=== PATIENT | female | born 1975 | race Hispanic/Latino ===

== ENCOUNTER 2016-11-13 14:24 | Emergency (ER) | payer BC | END 2016-11-13 16:53 | disposition home or self-care (01) | LOC: ERS 14:24 | DX: J06.9 Acute upper respiratory infection, unspecified (principal) | CPT/HCPCS: 99283 ==

== ENCOUNTER 2017-04-03 07:59 | Emergency (ER) | payer BC ==
--- NOTE | 2017-04-03 08:55 | RAD ---
PA AND LATERAL CHEST: History: Cough. FINDINGS: Comparison is made with exam of 02-08-12. The heart size is normal. The lungs are expanded without focal areas of consolidation, pneumothorax, or pleural effusions. Mild degenerative changes in the spine. IMPRESSION: No radiographic evidence of acute cardiopulmonary process. POS: OFF
== END 2017-04-03 09:02 | disposition home or self-care (01) ==
LOC: ERS 07:59
DX: B34.9 Viral infection, unspecified (principal)
CPT/HCPCS: 71046; 87804; 94640; J7620

== ENCOUNTER 2017-07-27 15:48 | Outpatient (CLI) | payer BC | END 2017-07-27 15:49 | disposition home or self-care (01) | LOC: BICMAMMO 15:48 | PROVIDERS: ATTEND Orthopaedic Surgery Sports Medicine | DX: Z12.31 Encounter for screening mammogram for malignant neoplasm of breast (principal) | CPT/HCPCS: 77063; 77067 ==

== ENCOUNTER 2017-10-22 10:40 | Outpatient (CLI) | payer BC | END 2017-10-22 10:41 | disposition home or self-care (01) | LOC: BICRAD 10:40 | PROVIDERS: ATTEND Internal Medicine | DX: J34.2 Deviated nasal septum (principal) | CPT/HCPCS: 70220 ==

== ENCOUNTER 2018-06-17 10:56 | Emergency (ER) | payer BC | END 2018-06-17 13:42 | disposition home or self-care (01) | LOC: ERS 10:56 | DX: M65.4 Radial styloid tenosynovitis [de Quervain] (principal) | CPT/HCPCS: 99283 ==

== ENCOUNTER 2018-11-01 15:02 | Outpatient (CLI) | payer BC ==
--- NOTE | 2018-11-01 15:21 | MMO ---
Bilateral MAMMO Bilat Screen [facility]. CLINICAL HISTORY: Patient is 43 years old and is seen for screening. The patient has no family history of breast cancer. The patient has no personal history of cancer. VIEWS: The views performed were: bilateral craniocaudal with tomosynthesis and bilateral mediolateral oblique with tomosynthesis. FILMS COMPARED: The present examination has been compared to prior imaging studies performed at [facility] on 07/08/2012, 03/30/2015, 05/19/2016 and 07/27/2017. This study has been interpreted with the assistance of computer-aided detection. MAMMOGRAM FINDINGS: The breasts are heterogeneously dense, which could obscure a lesion on mammography. There are no suspicious masses, suspicious calcifications, or new areas of architectural distortion. IMPRESSION: THERE IS NO MAMMOGRAPHIC EVIDENCE OF MALIGNANCY. A ROUTINE FOLLOW-UP MAMMOGRAM IN 1 YEAR IS RECOMMENDED. THE RESULTS OF THIS EXAM WERE SENT TO THE PATIENT. ACR BI-RADS Category 1 - Negative MAMMOGRAPHY NOTE: 1. A negative mammogram report should not delay a biopsy if a dominant of clinically suspicious mass is present. 2. Approximately 10% to 15% of breast cancers are not detected by mammography. 3. Adenosis and dense breasts may obscure an underlying neoplasm. Reported by: DEMI GUERRERO MD Electonically Signed: [id number]
== END 2018-11-01 15:03 | disposition home or self-care (01) ==
LOC: BICMAMMO 15:02
PROVIDERS: ATTEND Family Medicine
DX: Z12.31 Encounter for screening mammogram for malignant neoplasm of breast (principal)
CPT/HCPCS: 77063; 77067

== ENCOUNTER 2018-11-29 11:24 | Emergency (ER) | payer BC ==
[2018-11-29] MEDS ORDERED: Acetaminophen 500 MG TAB ONE (13:01)
[2018-11-29 13:13] LABS: #Basophils 0.1 thou/uL (0.0-0.2); #Eosinphils 0.2 thou/uL (0.0-0.7); #Lymphocytes 1.9 thou/uL (1.20-3.40); #Monocytes 0.9 thou/uL (0.11-0.59); #Neutrophils 5.2 thou/uL (1.40-6.50); %Basophils 0.8 % (0.0-1.0); %Eosinophils 2.2 % (0.0-10.0); %Lymphocytes 23.2 % (21.0-51.0); %Monocytes 10.4 % (0.0-10.0); %Neutrophils 63.5 % (42.0-75.0); Mean Corpuscular HGB CONC 34.5 g/dL (32.0-36.0); Mean Corpuscular Hemoglobin 32.5 pg (27.0-31.0); Mean Platelet Volume 6.8 fL (7.4-10.4); Platelet Count 265 thou/uL (130-400); RBC Distribution Width 11.9 % (11.5-14.5); Red Blood Cell (RBC) Count 4.61 mill/uL (4.20-5.40); White Blood Cell (WBC) Count 8.2 thou/uL (4.8-10.8)
--- NOTE | 2018-11-29 13:31 | RAD ---
2 VIEW CHEST: Date: 11/29/18 COMPARISON: 04/03/17. INDICATION: Chest pain. FINDINGS: Lungs are clear. No effusion or pneumothorax. Cardiac silhouette accentuated by portable technique. IMPRESSION: No focal consolidation. POS: C
[2018-11-29 13:35] LABS: ALT (SGPT) 19 U/L (8-55); AST (SGOT) 19 U/L (5-34); Albumin 3.9 g/dL (3.5-5.0); Alkaline Phosphatase 66 U/L (40-110); Anion Gap 13 mmol/L (10-20); BUN (Urea Nitrogen) 12 mg/dL (7.0-18.7); Bilirubin, Total 0.3 mg/dL (0.2-1.2); Calc. Creatinine Clearance 0 mL/min (70-130); Calcium 8.9 mg/dL (7.8-10.44); Carbon Dioxide 21 mmol/L (22-29); Chloride 107 mmol/L (98-107); Estimated GFR-MDRD 81; Globulin 3.1 g/dL (2.4-3.5); Glucose 93 mg/dL (70-105); Sodium 137 mmol/L (136-145)
[2018-11-29 13:37] LABS: BHCG - Serum Negative (NEGATIVE); Pregs Control Background? CLEAR/WHITE (CLR/WHITE); Pregs Control Bar Appear? YES (CONTROL BAR)
[2018-11-29 13:38] LABS: Bilirubin Negative (Negative); Blood, Urine Negative (Negative); Clarity Clear (Clear); Glucose, Urine (Dipstick) Normal (Negative); Leukocyte 500 Leu/uL (Negative); Nitrite Negative (Negative); Protein, Urine (Dipstick) Negative (Neg-Trace); Urobilinogen Normal mg/dL (Less than 2)
[2018-11-29 13:45] LABS: Bacteria/HPF 1+ HPF (None Seen)
== END 2018-11-29 14:50 | disposition home or self-care (01) ==
LOC: ERS 11:24
DX: N39.0 Urinary tract infection, site not specified (principal); M54.6 Pain in thoracic spine
CPT/HCPCS: 36415; 71046; 80053; 81003; 81015; 84484; 84703; 85025; 93005

== ENCOUNTER 2020-07-23 15:44 | Outpatient (CLI) | payer BC, OTHER | END 2020-07-23 15:45 | disposition home or self-care (01) | LOC: BICRAD 15:44 | PROVIDERS: ATTEND Family Medicine | DX: M25.561 Pain in right knee (principal); M25.562 Pain in left knee ==

== ENCOUNTER 2021-07-18 18:28 | Emergency (ER) | payer SELFPAY ==
[2021-07-18 18:55] LABS: #Eosinphils 0.1 thou/uL (0.0-0.7); #Lymphocytes 2.6 thou/uL (1.20-3.40); #Monocytes 0.7 thou/uL (0.11-0.59); #Neutrophils 4.3 thou/uL (1.40-6.50); %Basophils 0.5 % (0.0-1.0); %Eosinophils 1.7 % (0.0-10.0); %Lymphocytes 33.3 % (21.0-51.0); %Monocytes 9.6 % (0.0-10.0); Hemoglobin 13.5 g/dL (12.0-16.0); Mean Corpuscular Hemoglobin 31.8 pg (27.0-31.0); Mean Corpuscular Volume 96.5 fL (78.0-98.0); Mean Platelet Volume 6.8 fL (7.4-10.4); Platelet Count 275 thou/uL (130-400); RBC Distribution Width 12.2 % (11.5-14.5); Red Blood Cell (RBC) Count 4.24 mill/uL (4.20-5.40); White Blood Cell (WBC) Count 7.7 thou/uL (4.8-10.8)
[2021-07-18 19:05] LABS: Pregnancy Test - Urine (BHCG) Negative (Negative); Pregu Control Background? CLEAR/WHITE (CLR/WHITE); Pregu Control Bar Appear? YES (CONTROL BAR); Specific Gravity 1.033 (1.002-1.036)
[2021-07-18 19:06] LABS: Bacteria/HPF None Seen HPF (None Seen); Bilirubin Negative (Negative); Blood, Urine Negative (Negative); Clarity Clear (Clear); Glucose, Urine (Dipstick) Normal (Negative); Ketone, Urine Negative (Negative); Leukocyte 25 Leu/uL (Negative); Nitrite Negative (Negative); Protein, Urine (Dipstick) 10 mg/dL (Neg-Trace); RBC/HPF 0-3 HPF (0-3); Specific Gravity, Urine 1.033 (1.002-1.036); pH, Urine 5.5 (5.0-9.0)
[2021-07-18 19:16] LABS: ALT (SGPT) 23 U/L (8-55); AST (SGOT) 24 U/L (5-34); Albumin 3.7 g/dL (3.5-5.0); Alkaline Phosphatase 72 U/L (40-110); Anion Gap 13 mmol/L (10-20); BUN (Urea Nitrogen) 12 mg/dL (7.0-18.7); Bilirubin, Total 0.3 mg/dL (0.2-1.2); Calc. Creatinine Clearance 0 mL/min (70-130); Calcium 8.7 mg/dL (7.8-10.44); Carbon Dioxide 21 mmol/L (22-29); Chloride 106 mmol/L (98-107); Globulin 3.1 g/dL (2.4-3.5); Glucose 101 mg/dL (70-105); Potassium 3.9 mmol/L (3.5-5.1); Protein, Total 6.8 g/dL (6.0-8.3); Sodium 136 mmol/L (136-145)
== END 2021-07-18 20:22 | disposition home or self-care (01) ==
LOC: ERS 18:28
DX: N30.00 Acute cystitis without hematuria (principal)
CPT/HCPCS: 36415; 76856; 80053; 81003; 81015; 81025; 85025; 87480; 87510; 87660

== ENCOUNTER 2021-08-23 17:16 | Inpatient (IN) | payer OTHER, SELFPAY ==
[2021-08-23] MEDS ORDERED: Boostrix 0.5 ML (Tdap) VIAL ONE (17:33)
[2021-08-23 17:41] LABS: #Eosinphils 0.1 thou/uL (0.0-0.7); #Lymphocytes 1.9 thou/uL (1.20-3.40); #Monocytes 0.6 thou/uL (0.11-0.59); #Neutrophils 4.9 thou/uL (1.40-6.50); %Basophils 0.6 % (0.0-1.0); %Eosinophils 1.6 % (0.0-10.0); %Lymphocytes 25.5 % (21.0-51.0); %Monocytes 8.3 % (0.0-10.0); Hemoglobin 13.9 g/dL (12.0-16.0); Mean Corpuscular HGB CONC 33.2 g/dL (32.0-36.0); Mean Corpuscular Volume 96.3 fL (78.0-98.0); Mean Platelet Volume 6.8 fL (7.4-10.4); Platelet Count 276 thou/uL (130-400); RBC Distribution Width 12.2 % (11.5-14.5); Red Blood Cell (RBC) Count 4.35 mill/uL (4.20-5.40); White Blood Cell (WBC) Count 7.6 thou/uL (4.8-10.8)
[2021-08-23] MEDS ORDERED: Ondansetron PF 4 MG/2 ML Vial ONE ×2 (17:44→19:39)
[2021-08-23] MEDS ORDERED: Morphine 4 MG/ML VIAL ONE (17:44)
[2021-08-23 18:04] LABS: ALT (SGPT) 18 U/L (8-55); AST (SGOT) 21 U/L (5-34); Albumin 3.9 g/dL (3.5-5.0); Alkaline Phosphatase 60 U/L (40-110); Anion Gap 12 mmol/L (10-20); BUN (Urea Nitrogen) 12 mg/dL (7.0-18.7); Bilirubin, Total 0.4 mg/dL (0.2-1.2); Calc. Creatinine Clearance 0 mL/min (70-130); Calcium 8.8 mg/dL (7.8-10.44); Carbon Dioxide 24 mmol/L (22-29); Chloride 104 mmol/L (98-107); Estimated GFR 106; Glucose 101 mg/dL (70-105); Potassium 4.2 mmol/L (3.5-5.1); Protein, Total 6.9 g/dL (6.0-8.3); Sodium 136 mmol/L (136-145)
[2021-08-23] MEDS ORDERED: CEFAZOLIN 2 GM VIAL ONE (18:06)
[2021-08-23] MEDS ORDERED: Gentamicin 80 MG/2 ML VIAL ONE (18:27)
[2021-08-23 18:40] LABS: SARS-CoV-2 NAA Rapid Test Not Detected (NotDetected)
[2021-08-23] MEDS ORDERED: Bupivacaine PF 0.5% 30 ML VIAL ONE (18:43)
[2021-08-23] MEDS ORDERED: Bacitracin Zinc Ointment 30 gm TUBE ONE (18:43)
[2021-08-23] MEDS ORDERED: Neomycin-Polymyxin 1 ML AMP ONE (18:43)
[2021-08-23] MEDS ORDERED: Ondansetron PF 4 MG/2 ML Vial IVP PRN (19:09)
[2021-08-23] MEDS ORDERED: Promethazine HCl 25 MG/ML VIAL IM PRN ×2 (19:09→21:53)
[2021-08-23] MEDS ORDERED: Fentanyl 100 MCG/2 ML VIAL SLOW IVP PRN (19:09)
[2021-08-23] MEDS ORDERED: fentaNYL Citrate/PF 100 MCG/2 ML SYRINGE ONE (19:14)
[2021-08-23] MEDS ORDERED: Communication Order-Pharmacy FS SCH (19:15)
[2021-08-23] MEDS ORDERED: Meperidine HCl/PF 25 MG/ML VIAL IM PRN (19:15)
[2021-08-23] MEDS ORDERED: TETANUS AND DIPHTHERIA TOX/PF 0.5 ML DISP.SYRIN IM SCH (19:15)
[2021-08-23] MEDS ORDERED: Famotidine/PF 20 mg/2ml Vial ONE (19:20)
[2021-08-23] MEDS ORDERED: Lidocaine 2% PF 5 ML VIAL ONE (19:24)
[2021-08-23] MEDS ORDERED: Heparin 10,000 UNITS/ 10 ML VIAL ONE (19:24)
[2021-08-23] MEDS ORDERED: Hetastarch 6% 500 ML 0 ML ONE (19:24)
[2021-08-23] MEDS ORDERED: Betamet Acet/Betamet Na Ph 30 MG/5 ML VIAL ONE (19:24)
[2021-08-23] MEDS ORDERED: Glycopyrrolate 0.2 MG/ML 5 ML SYRINGE ONE (19:39)
[2021-08-23] MEDS ORDERED: PROPOFOL 200 MG/20 ML VIAL ONE (19:39)
[2021-08-23] MEDS ORDERED: Dexamethasone 20 MG/5 ML VIAL ONE (19:39)
[2021-08-23] MEDS ORDERED: Rocuronium Bromide 10 MG/ML (10ML VIAL) ONE (19:39)
[2021-08-23] MEDS ORDERED: Ketorolac Tromethamine 30 MG/ML VIAL ONE (19:39)
[2021-08-23] MEDS ORDERED: Succinylcholine 200 MG/10 ml SYRINGE FS ONE (19:39)
[2021-08-23] MEDS ORDERED: Lidocaine 1% PF 5 ML VIAL ONE (19:39)
[2021-08-23] MEDS ORDERED: Vancomycin 1 GM in Premix Bag 1 BAG IVPB SCH (21:00)
[2021-08-23] MEDS ORDERED: Vancomycin 1 GM/200 ML BAG ONE (21:38)
[2021-08-23] MEDS ORDERED: Promethazine HCl 25 MG/ML VIAL IVPB PRN (21:53)
[2021-08-23] MEDS ORDERED: Ondansetron HCl/PF 4 MG/2 ML Vial IVP PRN (21:53)
[2021-08-23] MEDS ORDERED: Meperidine HCl/PF 25 MG/ML VIAL SLOW IVP PRN (21:53)
[2021-08-24 00:02] VITALS: BMI 31.6
[2021-08-24] MEDS: Gentamicin Sulfate 80 MG in Premix Bag 1 BAG IVPB SCH ×4 (05:58→15:47)
[2021-08-24] MEDS: Aspirin 81 mg Enteric Coated Tablet PO SCH ×3 (06:45→21:07)
[2021-08-24 07:25] LABS: #Lymphocytes 0.5 thou/uL (1.20-3.40); #Monocytes 0.1 thou/uL (0.11-0.59); #Neutrophils 8.2 thou/uL (1.40-6.50); %Eosinophils 0.1 % (0.0-10.0); %Monocytes 1.3 % (0.0-10.0); %Neutrophils 92.7 % (42.0-75.0); Hemoglobin 13.5 g/dL (12.0-16.0); Mean Corpuscular HGB CONC 32.2 g/dL (32.0-36.0); Mean Corpuscular Hemoglobin 31.4 pg (27.0-31.0); Mean Corpuscular Volume 97.3 fL (78.0-98.0); Mean Platelet Volume 7.4 fL (7.4-10.4); Platelet Count 268 thou/uL (130-400); RBC Distribution Width 12.2 % (11.5-14.5); Red Blood Cell (RBC) Count 4.29 mill/uL (4.20-5.40); White Blood Cell (WBC) Count 8.9 thou/uL (4.8-10.8)
[2021-08-24 07:43] LABS: Hemoglobin A1c 5.3 % (4.0-6.0)
[2021-08-24] MEDS: traMADol HCl 50 MG TAB PO PRN ×3 (08:45→21:12)
[2021-08-24] MEDS: Acetaminophen 325 MG TAB PO PRN ×3 (08:50→21:12)
[2021-08-24] MEDS: VANCOMYCIN 1.25 GM/250 ML BAG 1.25 GM in Premix Bag 1 BAG IVPB SCH ×2 (08:51→22:13)
[2021-08-24] MEDS: Penicillin G Potassium 3 MILL.UNITS in Sodium Chloride 0.9% 50 ML IVPB SCH ×4 (11:21→21:02)
[2021-08-25] MEDS: Gentamicin Sulfate 80 MG in Premix Bag 1 BAG IVPB SCH (02:09)
[2021-08-25] MEDS: Penicillin G Potassium 3 MILL.UNITS in Sodium Chloride 0.9% 50 ML IVPB SCH (03:08)
[2021-08-25] MEDS: HYDROcodone/Acetaminophen 5/325 mg Tablet PO PRN (06:52)
[2021-08-25 08:49] LABS: Vancomycin, Trough 11.9 ug/mL
[2021-08-25] MEDS: VANCOMYCIN 1.25 GM/250 ML BAG 1.25 GM in Premix Bag 1 BAG IVPB SCH ×2 (10:13→20:49)
[2021-08-25] MEDS: Aspirin 81 mg Enteric Coated Tablet PO SCH ×2 (10:13→20:51)
[2021-08-25] MEDS: Acetaminophen 325 MG TAB PO PRN ×2 (10:18→18:13)
[2021-08-25] MEDS: traMADol HCl 50 MG TAB PO PRN ×2 (10:19→18:12)
[2021-08-26] MEDS: HYDROcodone/Acetaminophen 5/325 mg Tablet PO PRN (06:37)
[2021-08-26] MEDS: VANCOMYCIN 1.25 GM/250 ML BAG 1.25 GM in Premix Bag 1 BAG IVPB SCH ×2 (09:25→22:56)
[2021-08-26] MEDS: Aspirin 81 mg Enteric Coated Tablet PO SCH ×2 (09:26→22:48)
[2021-08-26] MEDS ORDERED: Neomycin-Polymyxin 1 ML AMP ONE ×2 (12:45→16:08)
[2021-08-26] MEDS ORDERED: Bupivacaine PF 0.5% 30 ML VIAL ONE (12:45)
[2021-08-26] MEDS ORDERED: Bacitracin Zinc Ointment 30 gm TUBE ONE (12:45)
[2021-08-26] MEDS ORDERED: fentaNYL Citrate/PF 100 MCG/2 ML SYRINGE ONE (16:07)
[2021-08-26] MEDS ORDERED: Ketorolac Tromethamine 30 MG/ML VIAL ONE (16:41)
[2021-08-26] MEDS ORDERED: PROPOFOL 200 MG/20 ML VIAL ONE (16:41)
[2021-08-26] MEDS ORDERED: Ondansetron PF 4 MG/2 ML Vial ONE ×2 (16:41→22:10)
[2021-08-26] MEDS ORDERED: ePHEDrine 50 MG/ML VIAL ONE (16:41)
[2021-08-26] MEDS ORDERED: Lidocaine 1% PF 5 ML VIAL ONE (16:41)
[2021-08-26] MEDS ORDERED: Dexamethasone 20 MG/5 ML VIAL ONE (16:41)
[2021-08-26] MEDS ORDERED: Promethazine HCl 25 MG/ML VIAL IM PRN (20:45)
[2021-08-26] MEDS ORDERED: Ondansetron HCl/PF 4 MG/2 ML Vial IVP PRN (20:45)
[2021-08-26] MEDS ORDERED: HYDROmorphone 2 MG/ML VIAL SLOW IVP PRN (20:45)
[2021-08-26] MEDS ORDERED: Promethazine HCl 25 MG/ML VIAL IVPB PRN (20:45)
[2021-08-26] MEDS ORDERED: Fentanyl 100 MCG/2 ML VIAL ONE ×2 (21:07→21:53)
[2021-08-26] MEDS ORDERED: HYDROmorphone 0.5 MG/0.5 ML SYRINGE ONE (21:31)
[2021-08-27] MEDS: Morphine 4 MG/ML VIAL SLOW IVP PRN ×2 (00:41→05:00)
[2021-08-27] MEDS: Acetaminophen 325 MG TAB PO PRN ×2 (00:41→10:41)
[2021-08-27] MEDS: Aspirin 81 mg Enteric Coated Tablet PO SCH (10:36)
[2021-08-27] MEDS: traMADol HCl 50 MG TAB PO PRN (10:40)
[2021-08-27 13:01] VITALS: BP 120/73; TEMP 98.5
== END 2021-08-27 15:55 | disposition home or self-care (01) | DRG 512 ==
LOC: ERS 17:16 → SJJU 19:15
PROVIDERS: ADMIT Orthopaedic Surgery Hand Surgery; ATTEND Orthopaedic Surgery Hand Surgery
PROC: 0PSV04Z Reposition Left Finger Phalanx with Internal Fixation Device, Open Approach (ICD-10-PCS; principal; 2021-08-23)
PROC: 01Q40ZZ Repair Ulnar Nerve, Open Approach (ICD-10-PCS; 2021-08-23)
PROC: 0PBJ0ZZ Excision of Left Radius, Open Approach (ICD-10-PCS; 2021-08-26)
PROC: 0PUV07Z Supplement Left Finger Phalanx with Autologous Tissue Substitute, Open Approach (ICD-10-PCS; 2021-08-26)
DX: S62.625B Displaced fracture of middle phalanx of left ring finger, initial encounter for open fracture (principal); Z20.822 Contact with and (suspected) exposure to COVID-19; X58.XXXA Exposure to other specified factors, initial encounter; Y92.9 Unspecified place or not applicable
CPT/HCPCS: 36415; 71045; 76000; 80053; 80202; 83036; 85025; 90471; 90715; 93005; 96365; 96375; C1713; C1894; J0690; J0702; J1100; J1170; J1580; J1644; J1885; J2001; J2270; J2405; J2540; J2704; J2710; J3010; J3370; J3490; S0020; S0028; U0002

== ENCOUNTER 2021-11-01 13:44 | Outpatient (CLI) | payer OTHER ==
[2021-11-01 14:45] LABS: #Eosinphils 0.2 10x3/uL (0.0-0.5); #Monocytes 0.7 10x3/uL (0.0-1.1); #Neutrophils 4.5 10x3/uL (1.5-8.4); %Basophils 0.5 % (0.0-2.0); %Eosinophils 2.7 % (0.0-6.0); %Lymphocytes 30.6 % (18.0-47.0); %Monocytes 9.2 % (0.0-10.0); %Neutrophils 56.9 % (40.0-75.0); Hemoglobin 13.4 g/dL (12.0-15.5); Mean Corpuscular HGB CONC 34.1 g/dL (32.0-36.0); Mean Corpuscular Hemoglobin 30.8 pg (27.0-33.0); Mean Corpuscular Volume 90.3 fl (81.6-98.3); Mean Platelet Volume 9.4 fl (7.4-10.4); Platelet Count 303 10x3/uL (150-450); RBC Distribution Width 12.6 % (11.5-14.5); Red Blood Cell (RBC) Count 4.35 10x6/uL (3.90-5.03); White Blood Cell (WBC) Count 7.9 10x3/uL (3.5-10.5)
== END 2021-11-01 13:45 | disposition home or self-care (01) ==
LOC: LABBT 13:44
PROVIDERS: ATTEND Orthopaedic Surgery Hand Surgery
DX: Z01.812 Encounter for preprocedural laboratory examination (principal); Z20.822 Contact with and (suspected) exposure to COVID-19
CPT/HCPCS: 85025; 87811

== ENCOUNTER 2022-02-20 11:56 | Day surgery (SDC) | payer OTHER ==
[2022-02-17 14:19] VITALS: BMI 32.8
[2022-02-20] MEDS ORDERED: Bupivacaine PF 0.5% 30 ML VIAL ONE (14:28)
[2022-02-20] MEDS ORDERED: Bacitracin Zinc Ointment 30 gm TUBE ONE (14:28)
[2022-02-20] MEDS ORDERED: Fentanyl 100 MCG/2 ML VIAL ONE ×2 (14:32→16:10)
[2022-02-20] MEDS ORDERED: Famotidine/PF 20 mg/2ml Vial ONE (14:32)
[2022-02-20] MEDS ORDERED: Sodium Chloride 0.9% 100 ML ONE (14:35)
[2022-02-20] MEDS ORDERED: CEFAZOLIN 2 GM VIAL ONE (14:35)
[2022-02-20] MEDS ORDERED: PROPOFOL 200 MG/20 ML VIAL ONE (14:43)
[2022-02-20] MEDS ORDERED: Ketorolac Tromethamine 30 MG/ML VIAL ONE (14:43)
[2022-02-20] MEDS ORDERED: Metoclopramide HCl 10 MG/2 ML VIAL ONE (14:43)
[2022-02-20] MEDS ORDERED: Ondansetron PF 4 MG/2 ML Vial ONE (14:43)
[2022-02-20] MEDS ORDERED: Lidocaine 1% PF 5 ML VIAL ONE (14:43)
[2022-02-20] MEDS ORDERED: PHENYLEPHRINE-NS 100 MCG/ML 10 ML SYRINGE ONE (14:43)
[2022-02-20] MEDS ORDERED: Betamet Acet/Betamet Na Ph 30 MG/5 ML VIAL ONE (15:20)
== END 2022-02-20 17:45 | disposition home or self-care (01) ==
LOC: SDC 11:56
PROVIDERS: ATTEND Orthopaedic Surgery Hand Surgery
PROC: 0PPV04Z Removal of Internal Fixation Device from Left Finger Phalanx, Open Approach (ICD-10-PCS; principal; 2022-02-20)
PROC: 0LN80ZZ Release Left Hand Tendon, Open Approach (ICD-10-PCS; principal; 2022-02-20)
PROC: 0RNX0ZZ Release Left Finger Phalangeal Joint, Open Approach (ICD-10-PCS; principal; 2022-02-20)
DX: T84.84XA Pain due to internal orthopedic prosthetic devices, implants and grafts, initial encounter (principal); M24.542 Contracture, left hand; Z87.81 Personal history of (healed) traumatic fracture; Z88.8 Allergy status to other drugs, medicaments and biological substances; G90.50 Complex regional pain syndrome I, unspecified; Y79.2 Prosthetic and other implants, materials and accessory orthopedic devices associated with adverse incidents
CPT/HCPCS: J0702; J1885; J2405; J2704; J2765; J3010; J3490; S0020; S0028

== ENCOUNTER 2022-05-04 09:25 | Outpatient (CLI) | payer OTHER | END 2022-05-04 09:26 | disposition home or self-care (01) | LOC: SCSMRI 09:25 | PROVIDERS: ATTEND Family Medicine | DX: S63.592A Other specified sprain of left wrist, initial encounter (principal); Z98.890 Other specified postprocedural states ==

== ENCOUNTER 2022-11-13 10:41 | Outpatient (CLI) | payer OTHER | END 2022-11-13 10:42 | disposition home or self-care (01) | LOC: RAD 10:41 | PROVIDERS: ATTEND Family Medicine | DX: M79.674 Pain in right toe(s) (principal); M19.071 Primary osteoarthritis, right ankle and foot ==

== ENCOUNTER 2022-12-07 09:48 | Emergency (ER) | payer OTHER ==
[2022-12-07] MEDS ORDERED: Acetaminophen 325 MG TAB ONE (10:14)
[2022-12-07 10:15] LABS: Bacteria/HPF None Seen HPF (None Seen); Bilirubin Negative (Negative); Blood, Urine Negative (Negative); CAUTI Indications for Culture Dysuria,urgency,freq; Clarity Clear (Clear); Glucose, Urine (Dipstick) Normal (Negative); Ketone, Urine Negative (Negative); Leukocyte Negative Leu/uL (Negative); Nitrite Negative (Negative); Protein, Urine (Dipstick) Negative (Neg-Trace); RBC/HPF 0-3 HPF (0-3); Urobilinogen Normal mg/dL (Less than 2); WBC/HPF 0-3 HPF (0-3); pH, Urine 5.5 (5.0-9.0)
[2022-12-07 10:20] LABS: Pregnancy Test - Urine (BHCG) Negative (Negative); Pregu Control Background? CLEAR/WHITE (CLR/WHITE); Pregu Control Bar Appear? YES (CONTROL BAR)
[2022-12-07 10:21] LABS: Urine Culture Reflex No No
[2022-12-07] MEDS ORDERED: Dicyclomine 20 MG TAB ONE (10:43)
[2022-12-07 10:59] LABS: #Eosinphils 0.1 thou/uL (0.0-0.7); #Monocytes 0.9 thou/uL (0.11-0.59); #Neutrophils 5.7 thou/uL (1.40-6.50); %Basophils 0.4 % (0.0-1.0); %Eosinophils 1.2 % (0.0-10.0); %Lymphocytes 19.9 % (21.0-51.0); %Monocytes 10.7 % (0.0-10.0); %Neutrophils 67.6 % (42.0-75.0); Hematocrit 40.4 % (36.0-47.0); Hemoglobin 13.6 g/dL (12.0-16.0); Mean Corpuscular HGB CONC 33.7 g/dL (32.0-36.0); Mean Corpuscular Hemoglobin 30.2 pg (27.0-31.0); Mean Corpuscular Volume 89.8 fl (78.0-98.0); Mean Platelet Volume 9.4 fL (7.4-10.4); Platelet Count 277 10x3/uL (130-400); RBC Distribution Width 13.7 % (11.5-14.5); White Blood Cell (WBC) Count 8.5 10x3/uL (4.8-10.8)
[2022-12-07 11:23] LABS: ALT (SGPT) 22 U/L (8-55); AST (SGOT) 24 U/L (5-34); Albumin 4.1 g/dL (3.5-5.0); Alkaline Phosphatase 62 U/L (40-110); Anion Gap 14 mmol/L (10-20); BUN (Urea Nitrogen) 9 mg/dL (7.0-18.7); Bilirubin, Total 0.8 mg/dL (0.2-1.2); Calc. Creatinine Clearance 0 mL/min (70-130); Carbon Dioxide 25 mmol/L (22-29); Chloride 104 mmol/L (98-107); Estimated GFR 108; Globulin 2.9 g/dL (2.4-3.5); Glucose 78 mg/dL (70-105); Lipase 18 U/L (8-78); Potassium 3.7 mmol/L (3.5-5.1); Sodium 139 mmol/L (136-145)
== END 2022-12-07 12:14 | disposition home or self-care (01) ==
LOC: ERS 09:48
DX: K46.9 Unspecified abdominal hernia without obstruction or gangrene (principal)
CPT/HCPCS: 74177; 80053; 81001; 81025; 83690; 85025

== ENCOUNTER 2023-07-19 11:32 | Outpatient (CLI) | payer OTHER ==
[2023-07-19 13:08] LABS: #Basophils 0.03 10x3/uL (0.0-0.2); #Eosinphils 0.15 10x3/uL (0.0-0.5); #Monocytes 0.73 10x3/uL (0.0-1.1); #Neutrophils 3.64 10x3/uL (1.5-8.4); %Basophils 0.5 % (0.0-2.0); %Eosinophils 2.4 % (0.0-6.0); %Lymphocytes 28.5 % (18.0-47.0); %Monocytes 11.4 % (0.0-10.0); Hematocrit 38.8 % (34.9-44.5); Hemoglobin 13.4 g/dL (12.0-15.5); Mean Corpuscular HGB CONC 34.5 g/dL (32.0-36.0); Mean Corpuscular Hemoglobin 31.5 pg (27.0-33.0); Mean Corpuscular Volume 91.1 fL (81.6-98.3); Mean Platelet Volume 9.6 fL (7.4-10.4); Platelet Count 316 10x3/uL (150-450); RBC Distribution Width 13.3 % (11.5-14.5); Red Blood Cell (RBC) Count 4.26 10x6/uL (3.90-5.03); White Blood Cell (WBC) Count 6.4 10x3/uL (3.5-10.5)
== END 2023-07-19 11:33 | disposition home or self-care (01) ==
LOC: LABBT 11:32
PROVIDERS: ATTEND Orthopaedic Surgery Hand Surgery
DX: Z01.812 Encounter for preprocedural laboratory examination (principal); S62.629A Displaced fracture of middle phalanx of unspecified finger, initial encounter for closed fracture; S62.657A Nondisplaced fracture of middle phalanx of left little finger, initial encounter for closed fracture; G90.512 Complex regional pain syndrome I of left upper limb; M77.9 Enthesopathy, unspecified; M24.50 Contracture, unspecified joint
CPT/HCPCS: 85025

== ENCOUNTER 2023-11-05 10:57 | Outpatient (CLI) | payer OTHER, SELFPAY ==
[2023-11-05 12:26] LABS: #Basophils 0.03 10x3/uL (0.0-0.2); %Basophils 0.4 % (0.0-1.0); %Eosinophils 2.3 % (0.0-10.0); %Lymphocytes 28.3 % (21.0-51.0); %Monocytes 10.1 % (0.0-10.0); %Neutrophils 58.8 % (42.0-75.0); Hematocrit 39.6 % (36.0-47.0); Hemoglobin 13.5 g/dL (12.0-16.0); Mean Corpuscular HGB CONC 34.1 g/dL (32.0-36.0); Mean Corpuscular Hemoglobin 30.8 pg (27.0-31.0); Mean Corpuscular Volume 90.4 fL (78.0-98.0); Mean Platelet Volume 9.1 fL (7.4-10.4); Platelet Count 290 10x3/uL (130-400); RBC Distribution Width 12.8 % (11.5-14.5); Red Blood Cell (RBC) Count 4.38 mill/uL (4.20-5.40)
== END 2023-11-05 10:58 | disposition home or self-care (01) ==
LOC: LABBT 10:57
PROVIDERS: ATTEND Orthopaedic Surgery Hand Surgery
DX: Z01.812 Encounter for preprocedural laboratory examination (principal); T85.692A Other mechanical complication of permanent sutures, initial encounter
CPT/HCPCS: 85025

== ENCOUNTER 2023-11-06 07:31 | Day surgery (SDC) | payer OTHER ==
[2023-11-05 11:40] VITALS: BMI 34.3
[2023-11-06] MEDS ORDERED: PROPOFOL 20 ML ONE ×3 (08:20→09:20)
[2023-11-06] MEDS ORDERED: Midazolam HCl 2 mg/2 ml Vial ONE (08:20)
[2023-11-06] MEDS ORDERED: CEFAZOLIN 2 GM VIAL ONE (08:27)
[2023-11-06] MEDS ORDERED: Sodium Chloride 0.9% 100 ML ONE (08:27)
[2023-11-06] MEDS ORDERED: HYDROcodone/Acetaminophen 5/325 mg Tablet ONE ×2 (09:55→09:59)
[2023-11-06] MEDS ORDERED: Ketorolac Tromethamine 30 MG (1 mL) VIAL ONE (10:15)
== END 2023-11-06 11:30 | disposition home or self-care (01) ==
LOC: SDC 07:31
PROVIDERS: ATTEND Orthopaedic Surgery Hand Surgery
PROC: 0HBGXZZ Excision of Left Hand Skin, External Approach (ICD-10-PCS; principal; 2023-11-06)
DX: T85.692A Other mechanical complication of permanent sutures, initial encounter (principal); G56.02 Carpal tunnel syndrome, left upper limb; S62.629A Displaced fracture of middle phalanx of unspecified finger, initial encounter for closed fracture; G90.512 Complex regional pain syndrome I of left upper limb; S62.657A Nondisplaced fracture of middle phalanx of left little finger, initial encounter for closed fracture; S56.522A Laceration of other extensor muscle, fascia and tendon at forearm level, left arm, initial encounter; S63.592A Other specified sprain of left wrist, initial encounter; M67.50 Plica syndrome, unspecified knee; G90.50 Complex regional pain syndrome I, unspecified; M77.9 Enthesopathy, unspecified; M24.50 Contracture, unspecified joint; M48.02 Spinal stenosis, cervical region; M50.30 Other cervical disc degeneration, unspecified cervical region; Z98.890 Other specified postprocedural states; Z79.899 Other long term (current) drug therapy; Z88.8 Allergy status to other drugs, medicaments and biological substances
CPT/HCPCS: J1885; J2250; J2704